=== PATIENT | female | born 2000 | race Two or more races ===

== ENCOUNTER 2019-03-26 23:04 | Emergency (ER) | payer SELFPAY ==
[~2019-03-26] VITALS: Ht 157.5 cm; Wt 79.5 kg
[2019-03-27 02:19] LABS: APPEARANCE,URINE CLOUDY (CLEAR); BILIRUBIN,URINE NEGATIVE (NEGATIVE); GLUCOSE, URINE (UA) NEGATIVE (NEGATIVE); KETONES,URINE TRACE mg/dL (NEGATIVE); LEUKOCYTE ESTERASE ,URINE MODERATE (NEGATIVE); NITRATE,URINE NEGATIVE (NEGATIVE); OCCULT BLOOD,URINE LARGE (NEGATIVE); PROTEIN,URINE POS 1+ (NEGATIVE)
[2019-03-27 02:33] LABS: BACTERIA,URINE Moderate /HPF (None Seen); SQUAMOUS EPITHELIAL CELL,UR Moderate /LPF (None Seen)
[2019-03-27] MEDS ORDERED: FLUCONAZOLE 150 MG TABLET PO ONE (03:30)
[2019-03-27 04:19] VITALS: BP 139/88
== END 2019-03-27 04:42 | disposition home or self-care (01) ==
LOC: EMS 23:05
DX: B37.9 Candidiasis, unspecified (principal); F12.90 Cannabis use, unspecified, uncomplicated
CPT/HCPCS: 87086